=== PATIENT | male | born 1950 | race Hispanic/Latino ===

== ENCOUNTER 2021-09-17 07:05 | Day surgery (SDC) | payer MEDICARE, MEDICAID ==
[2021-09-10 11:44] VITALS: BMI 25.8
[2021-09-17 08:25] LABS: Anion Gap 13 mmol/L (10-20); BUN (Urea Nitrogen) 10 mg/dL (8.4-25.7); Calc. Creatinine Clearance 83 mL/min (70-130); Calcium 9.4 mg/dL (7.8-10.44); Carbon Dioxide 28 mmol/L (23-31); Chloride 105 mmol/L (98-107); Glucose 104 mg/dL (80-115); Potassium 4.3 mmol/L (3.5-5.1); Sodium 142 mmol/L (136-145)
[2021-09-17] MEDS ORDERED: EPINEPHrine 1 MG/ML AMP ONE (08:56)
[2021-09-17] MEDS ORDERED: Fentanyl 100 MCG/2 ML VIAL ONE (08:58)
[2021-09-17] MEDS ORDERED: Propofol 1,000 MG/100 ML VIAL IV ONE (08:59)
== END 2021-09-17 12:30 | disposition home or self-care (01) ==
LOC: SDC 07:05
PROVIDERS: ATTEND Specialist
PROC: 3E0F8GC Introduction of Other Therapeutic Substance into Respiratory Tract, Via Natural or Artificial Opening Endoscopic (ICD-10-PCS; principal; 2021-09-17)
DX: J38.01 Paralysis of vocal cords and larynx, unilateral (principal); E78.5 Hyperlipidemia, unspecified; Z87.891 Personal history of nicotine dependence; Z79.899 Other long term (current) drug therapy; Z91.041 Radiographic dye allergy status
CPT/HCPCS: 80048; 85014; 85018; 93005; 93010; C1776; J0171; J2704; J3010; J7620